=== PATIENT | female | born 1985 | race Hispanic/Latino ===

== ENCOUNTER 2016-07-02 18:03 | Emergency (ER) | payer MEDICAID ==
[2016-07-02] MEDS ORDERED: Amoxicillin 125 mg/5 ml Oral Suspension ONE (18:21)
[2016-07-02] MEDS ORDERED: AMOXicillin 250 MG CAP ONE (18:21)
[2016-07-02] MEDS ORDERED: HYDROcodone/Acetaminophen 5/325 mg Tablet ONE (18:21)
== END 2016-07-02 18:31 | disposition home or self-care (01) ==
LOC: BURERS 18:03
DX: K04.7 Periapical abscess without sinus (principal); J45.909 Unspecified asthma, uncomplicated; F17.210 Nicotine dependence, cigarettes, uncomplicated
CPT/HCPCS: 99282

== ENCOUNTER 2016-10-12 21:52 | Emergency (ER) | payer MEDICAID, OTHER ==
[2016-10-12] MEDS ORDERED: Ketorolac Tromethamine 60 MG/2 ML VIAL ONE (22:17)
[2016-10-12] MEDS ORDERED: cefTRIAXone\\ROCEPHIN 1 GM VIAL ONE (22:17)
[2016-10-12] MEDS ORDERED: HYDROcodone/Acetaminophen 5/325 mg Tablet ONE (22:17)
== END 2016-10-12 22:44 | disposition home or self-care (01) ==
LOC: BURERS 21:52
DX: K04.7 Periapical abscess without sinus (principal); J45.909 Unspecified asthma, uncomplicated; F17.210 Nicotine dependence, cigarettes, uncomplicated
CPT/HCPCS: 96372; J0696; J1885

== ENCOUNTER → 2018-05-22 | Emergency (ER) | payer OTHER, SELFPAY ==
[~2018-05-22] MED LIST: Amoxicillin/Potassium Clav 875 MG TAB ONE
== END ==
LOC: BURERS 17:59
DX: L08.82 Omphalitis not of newborn (principal); J45.909 Unspecified asthma, uncomplicated; F17.210 Nicotine dependence, cigarettes, uncomplicated
CPT/HCPCS: 87070; 87077; 87205; 99284

== ENCOUNTER 2018-12-08 11:16 | Emergency (ER) | payer MEDICAID | END 2018-12-08 11:53 | disposition home or self-care (01) | LOC: BURERS 11:16 | DX: O21.9 Vomiting of pregnancy, unspecified (principal); O99.89 Other specified diseases and conditions complicating pregnancy, childbirth and the puerperium; R19.7 Diarrhea, unspecified; O99.511 Diseases of the respiratory system complicating pregnancy, first trimester; J45.909 Unspecified asthma, uncomplicated; O99.331 Smoking (tobacco) complicating pregnancy, first trimester; F17.210 Nicotine dependence, cigarettes, uncomplicated; Z3A.08 8 weeks gestation of pregnancy | CPT/HCPCS: 99283 ==

== ENCOUNTER 2019-01-07 14:57 | Emergency (ER) | payer MEDICAID, OTHER ==
[2019-01-07] MEDS ORDERED: Ondansetron ODT 4 MG TAB ONE (15:33)
[2019-01-07] MEDS ORDERED: Oseltamivir 75 MG CAP ONE (15:33)
== END 2019-01-07 15:40 | disposition home or self-care (01) ==
LOC: BURERS 14:57
DX: O99.511 Diseases of the respiratory system complicating pregnancy, first trimester (principal); J11.1 Influenza due to unidentified influenza virus with other respiratory manifestations; O99.331 Smoking (tobacco) complicating pregnancy, first trimester; F17.210 Nicotine dependence, cigarettes, uncomplicated; Z3A.13 13 weeks gestation of pregnancy
CPT/HCPCS: 99283; Q0162

== ENCOUNTER 2020-09-04 15:49 | Emergency (ER) | payer OTHER | END 2020-09-04 17:03 | disposition home or self-care (01) | LOC: BURERS 15:49 | DX: S29.012A Strain of muscle and tendon of back wall of thorax, initial encounter (principal); K08.89 Other specified disorders of teeth and supporting structures; J45.909 Unspecified asthma, uncomplicated; F17.210 Nicotine dependence, cigarettes, uncomplicated; X58.XXXA Exposure to other specified factors, initial encounter | CPT/HCPCS: 99283 ==

== ENCOUNTER 2020-10-04 13:07 | Emergency (ER) | payer OTHER, SELFPAY ==
[2020-10-05 23:58] LABS: SARS-CoV-2 PCR by NAA Not Detected (NotDetected)
== END 2020-10-04 13:46 | disposition home or self-care (01) ==
LOC: BURERS 13:07
DX: J06.9 Acute upper respiratory infection, unspecified (principal); Z20.822 Contact with and (suspected) exposure to COVID-19; J45.909 Unspecified asthma, uncomplicated; F17.210 Nicotine dependence, cigarettes, uncomplicated
CPT/HCPCS: 99283; U0003; U0005

== ENCOUNTER 2021-01-25 17:19 | Emergency (ER) | payer OTHER | END 2021-01-25 17:41 | disposition home or self-care (01) | LOC: BURERS 17:19 | DX: K04.7 Periapical abscess without sinus (principal); F17.210 Nicotine dependence, cigarettes, uncomplicated; Z76.0 Encounter for issue of repeat prescription; J45.909 Unspecified asthma, uncomplicated | CPT/HCPCS: 99406 ==

== ENCOUNTER 2021-12-18 18:18 | Emergency (ER) | payer OTHER ==
[2021-12-18] MEDS ORDERED: Meclizine HCl 25 MG TAB ONE (18:54)
[2021-12-18 19:02] LABS: Bilirubin Small (Negative); Blood, Urine Moderate (Negative); Clarity Clear (Clear); Glucose, Urine (Dipstick) Negative (Negative); Ketone, Urine > or equal to 80 mg/dL (Negative); Leukocyte Negative (Negative); Nitrite Negative (Negative); Protein, Urine (Dipstick) 100 mg/dL (Neg-Trace); Urobilinogen 0.2 mg/dL (Less than 2); pH, Urine 5.5 (5.0-9.0)
[2021-12-18 19:07] LABS: Pregnancy Test - Urine (BHCG) POSITIVE (Negative)
[2021-12-18 19:08] LABS: Pregu Control Background? CLEAR/WHITE (CLR/WHITE); Pregu Control Bar Appear? YES (CONTROL BAR); Specific Gravity 1.028 (1.002-1.036)
[2021-12-18 19:09] LABS: Specific Gravity, Urine 1.028 (1.005-1.030)
[2021-12-18 19:15] LABS: Bacteria/HPF Rare-Few HPF (None Seen); RBC/HPF 0-3 HPF (0-3); WBC/HPF 21-50 HPF (0-3)
== END 2021-12-18 19:25 | disposition home or self-care (01) ==
LOC: BURERS 18:18
DX: O21.9 Vomiting of pregnancy, unspecified (principal); O99.330 Smoking (tobacco) complicating pregnancy, unspecified trimester; F17.210 Nicotine dependence, cigarettes, uncomplicated; Z3A.00 Weeks of gestation of pregnancy not specified
CPT/HCPCS: 81003; 81015; 81025; 99284

== ENCOUNTER 2022-02-05 08:02 | Emergency (ER) | payer OTHER ==
[2022-02-05] MEDS ORDERED: Lidocaine 2% 6 ML SYR ONE (09:04)
[2022-02-05] MEDS ORDERED: Lidocaine 4% Cream 5 GM TUBE w/ Tegaderm ONE (09:12)
[2022-02-05 09:41] LABS: Bilirubin Negative (Negative); Blood, Urine Negative (Negative); Glucose, Urine (Dipstick) Negative (Negative); Ketone, Urine Negative (Negative); Leukocyte Trace (Negative); Nitrite Negative (Negative); Protein, Urine (Dipstick) Negative (Neg-Trace); Urobilinogen 0.2 mg/dL (Less than 2); pH, Urine 8.5 (5.0-9.0)
[2022-02-05 09:46] LABS: Clarity Cloudy (Clear)
[2022-02-05 09:47] LABS: Bacteria/HPF 4+ HPF (None Seen); RBC/HPF None Seen HPF (0-3); Squamous Epithelial 0-3 HPF (0-3); WBC/HPF 0-3 HPF (0-3)
== END 2022-02-05 09:47 | disposition home or self-care (01) ==
LOC: BURERS 08:02
DX: O99.612 Diseases of the digestive system complicating pregnancy, second trimester (principal); K59.00 Constipation, unspecified; O99.332 Smoking (tobacco) complicating pregnancy, second trimester; F17.210 Nicotine dependence, cigarettes, uncomplicated; Z3A.15 15 weeks gestation of pregnancy
CPT/HCPCS: 81003; 81015; 99284